=== PATIENT | male | born 1985 | race American Indian/Alaskan Native ===

== ENCOUNTER 2017-08-18 22:55 | Emergency (ER) | payer BC, OTHER ==
[2017-08-18 23:01] VITALS: BP 130/88
--- NOTE | 2017-08-19 00:04 | XRay Report ---
FINAL REPORT PROCEDURE: XR KNEE 3V RT TECHNIQUE: RIGHT knee radiographs, AP, lateral and sunrise views. CPT 08627 HISTORY: chronic pain and swelling r/t injury and surgery COMPARISON: No prior studies are available for comparison. FINDINGS: Internal fixation plate with multiple screws are identified in the distal right femur. Old healed fracture deformity is noted involving the distal femur with extensive callus formation anteriorly, medially and posteriorly. Irregular areas of ossification are noted in the medial soft tissues distal thigh. An acute fracture is not identified. Joint alignment is maintained. There is narrowing of the patellofemoral joint space. Mild degree fullness is noted in the suprapatellar region. 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 Osteoarthritis with mild degree joint effusion.
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
[2017-08-19] MEDS ORDERED: MOTRIN PO ONE (02:34)
[2017-08-19] MEDS ORDERED: NORCO 5/325 PO ONE (02:34)
[2017-08-19 02:53] LABS: Basophils % (Auto) 0.7 % (0.0-1.8); Eosinophils # (Auto) 0.1 K/mm3 (0.0-0.4); Eosinophils % (Auto) 2.6 % (0.0-4.3); Hematocrit 37.4 % (35.5-45.6); Hemoglobin 12.8 gm/dl (11.8-15.2); Lymphocytes # (Auto) 1.8 K/mm3 (1.2-5.4); Lymphocytes % (Auto) 40.5 % (13.4-35.0); Mean Corpuscular HGB Conc 34 % (32-34); Mean Corpuscular Hemoglobin 27 pg (28-32); Mean Corpuscular Volume 79 fl (84-94); Monocytes # (Auto) 0.6 K/mm3 (0.0-0.8); Monocytes % (Auto) 13.6 % (0.0-7.3); Platelet Count 206 K/mm3 (140-440); Red Blood Count 4.76 M/mm3 (3.65-5.03); Red Cell Distribution Width 14.5 % (13.2-15.2)
[2017-08-19 03:23] LABS: BUN/Creatinine Ratio 17; Blood Urea Nitrogen 15 mg/dL (9-20); Calcium 9.2 mg/dL (8.4-10.2); Hemolysis Index 1
[2017-08-19] MEDS ORDERED: LOVENOX SUB-Q ONE (04:46)
--- NOTE | 2017-08-19 15:13 | Vascular Lab Report ---
LOWER EXTREMITY VENOUS DUPLEX: REASON FOR EXAM: Elevated D-dimer. COMMENTS ON THE RIGHT: All veins visualized are freely compressible without evidence of internal echogenicity. Flow is spontaneous and phasic throughout. COMMENTS ON THE LEFT: All veins visualized are freely compressible without evidence of internal echogenicity. Flow is spontaneous and phasic throughout. IMPRESSION: No evidence of acute or chronic deep venous thrombosis in either lower extremity.
== END 2017-08-19 09:47 | disposition home or self-care (01) ==
LOC: ED 22:55
DX: M79.604 Pain in right leg (principal); R22.41 Localized swelling, mass and lump, right lower limb; R20.2 Paresthesia of skin; J45.909 Unspecified asthma, uncomplicated; Z79.899 Other long term (current) drug therapy; Z87.891 Personal history of nicotine dependence; Z91.013 Allergy to seafood
CPT/HCPCS: 36415; 73562; 80048; 82550; 85025; 85379; 93971; 96372; 99284; J1650